=== PATIENT | female | born 1995 | race African-American/Black ===

== ENCOUNTER → 2023-07-19 10:51 | Outpatient (CLI) | payer MEDICARE, MEDICAID, SELFPAY ==
--- NOTE | ~2023-07-19 | XR_ITS ---
EXAMINATION: XR chest 2V 07/19/2023 11:28 INDICATION: Chronic cough PROCEDURE: 2 view chest COMPARISON: No prior studies for comparison. FINDINGS: The lungs are clear. The cardiomediastinal silhouette is within normal limits. There are no pleural effusions. There is no pneumothorax suspected. IMPRESSION: 1: NO ACUTE CARDIOPULMONARY DISEASE. Reviewed, dictated and finalized at location B.
== END ==
PROVIDERS: PCP Internal Medicine; Visit Provider Internal Medicine
DX: R10.9 Unspecified abdominal pain (principal); R05.3 Chronic cough
CPT/HCPCS: 71046

== ENCOUNTER → 2023-07-22 10:26 | Outpatient (CLI) | payer MEDICARE, MEDICAID, SELFPAY ==
--- NOTE | ~2023-07-22 | US_ITS ---
US right upper quadrant INDICATION: Right upper quadrant pain PROCEDURE: Realtime right upper abdominal ultrasound. COMPARISON: No prior studies for comparison. FINDINGS: The pancreas is normal without focal mass or pancreatic ductal dilation. Liver echotexture is diffusely increased, consistent with fatty infiltration. There are gallbladder polyps, largest measuring 8 mm. No gallstones, gallbladder wall thickening or p ericholecystic fluid. The gallbladder is normal without stones, gallbladder wall thickening or pericholecystic fluid. Comm on bile duct measures 4.4 mm. No sonographic Farnsworth's sign. IMPRESSION: 1: Gallbladder polyps, largest measuring 8 mm. 2: Hepatic steatosis. Reviewed, dictated and finalized at location A.
== END ==
PROVIDERS: PCP Internal Medicine; Visit Provider Internal Medicine
DX: R10.9 Unspecified abdominal pain (principal); R05.3 Chronic cough; K82.4 Cholesterolosis of gallbladder
CPT/HCPCS: 76705

== ENCOUNTER 2024-08-28 13:04 | Outpatient (CLI) | payer MEDICARE, MEDICAID, SELFPAY ==
--- NOTE | ~2024-08-28 | US_ITS ---
US breast RT limited 08/28/2024 13:39 Indication: Skin abscess Procedure: High-resolution Limited ultrasound of the right breast Comparison: No prior studies for comparison. Findings: In the subcutaneous tissues in the area of palpable concern there is an irregular shaped co mplex fluid collection measuring 2.1 x 2.2 x 0.6 cm, consistent with abscess. There is marginal vascu larity. There is overlying skin thickening. Impression: 1: Complex subcutaneous fluid collection measuring up to 2.2 cm in the right breast at 2-3:00, 12 cm from the nipple, consistent with abscess. BI-RADS CATEGORY 3-PROBABLY BENIGN FINDING RECOMMENDATION: 3 month follow-up ultrasound recommended following appropriate therapy. Reviewed, dictated and finalized at location B. TIC YARN TWISTER HELPER Impression: 1: Complex subcutaneous fluid collection measuring up to 2.2 cm in the right br east at 2-3:00, 12 cm from the nipple, consistent with abscess. BI-RADS CATEGORY 3-PROBABLY BENIGN FINDING RECOMMENDATION: 3 month follow-up ultrasound recommended following appropriate therapy.
== END 2024-08-28 13:05 | disposition home or self-care (01) ==
LOC: ANHIMG 13:06
PROVIDERS: PCP Internal Medicine; Visit Provider Nurse Practitioner
DX: N61.1 Abscess of the breast and nipple (principal); R92.8 Other abnormal and inconclusive findings on diagnostic imaging of breast
CPT/HCPCS: 76642

== ENCOUNTER 2025-01-04 00:36 | Day surgery (SDC) | payer MEDICARE, MEDICAID, SELFPAY ==
[2024-12-25 10:30] VITALS: BMI 39.4
--- NOTE | 2024-12-25 10:31 | PC.NURSE ---
Report to the Outpatient Waiting Room, entrance under the green pavilion located off [facility], at time _0600_ on date _[id number]_. Planned Procedure Time: _0730_.? Time changes happen often and if your time is changed the preop area will call you the afternoon before. - You and your visitor will be asked to self-screen and do not enter if you have any COVID symptoms. Please call surgeon if you need to reschedule. - A mask is optional within the hospital at this time. Patients may have clear liquids (water, carbonated beverages, clear teas, apple juice) until 3 hours prior to surgery with a maximum of 20 ounces. - No food from midnight until time of surgery and no smoking, or chewing tobacco (or any form of nicotine). No chewing gum, candy or mints. Take only the following medications with a SIP of water on the morning of surgery: ___Antibiotic if still taking.____ DO NOT STOP ANY OF YOUR OTHER PRESCRIPTION MEDICATIONS PRIOR TO SURGERY EXCEPT THE FOLLOWING Hold all vitamins and supplements for 3 days per anesthesiologist. Medications to discontinue per physician Date to take last ofpr___[phone]____ Please no make-up, nail yoruba, hairspray, perfume, deodorant, or body powder the day of surgery.? No jewelry (including any body piercings) or valuables the day of surgery, leave them at home.? Please take a shower or bath the night before, or the morning of, surgery with an antibacterial soap.? Wear comfortable, loose fitting clothing.? - Jewelry must be removed prior to entering the operating room.? Rings and piercings that are not removed may be cut off. - The hospital will not accept responsibility for valuables.? - Please leave all valuables, including medications, at home the day of surgery. If you are going home after surgery, a licensed lokie driver must drive you home.? - NO public transportation without another adult if you receive anesthesia. - We recommend that an adult stay with you for 24 hours following discharge. - We also recommend that you do not drive, make important decision, drink alcoholic beverages, or take any drugs that were not prescribed by your health care provider for at least 24 hours after your discharge time. Follow any additional instructions given to you from your surgeon. Telephone instructions given to __Debra/mother___and asked if any additional questions and then verbalized understanding. Patient advised to call surgeon office or pre surgery nurse liaison [phone] if any additional questions.
[2025-01-04] VITALS (8 sets, daily range): BP systolic 100–123; BP diastolic 64–84; PULSE 69–86; RESP 14–18; TEMP 36.2–36.3; O2SAT 97–100; BMI 39.5
--- OUTSIDE RECORDS SUMMARY | 2025-01-04 00:41 | XMS_ITS | CONTINUITY OF CARE DOCUMENT ---
Author Name naun magallon Address Unknown Organization [facility] Address [address] [place] [address] Phone [phone] Care Team Providers Care Photostat Operator Helper Name Role Phone Lisa Davila MD Unavailable Sudeep Hitchcock MD Unavailable Sudeep Hitchcock MD Unavailable [phone] PROBLEMS Condition Status Date Provider Notes Cardiology examination active Lisa mullins MD Down syndrome active Lisa Davila MD Exposure to COVID-19 coronavirus active Grover Davila MD Edema active Lisa Davila MD Respiratory failure active Lisa Davila MD Hypotension active Lisa Davila MD Sinus tachycardia active Lisa Robb D Edema - generalized active Lisa Davila MD ENCOUNTERS Date Type Provider Location Encounter Diag nosis - In-person encounter Office Visit Lisa Davila MD [facility] - In-person encounter Office Visit Lisa Davila MD [facility] - In-person encounter Office Visit Lisa Davila MD [facility] Cardiology examinationDown syndromeExposure to COVID-19 coronavirusEdemaRespiratory failureHypotensionSinus tachycardiaEdema - generalized VITAL SIGNS Date Observation Value Provider Body Mass Index (Ratio) 41.40 kg/m2 Selvin Davila MD blood pressure, diastolic -1 mm[Hg] Jaycee peteLogreed blood pressure, systolic 90 mm[Hg] Daksha Stewartogic blood pressure, diastolic 75 mm[Hg] An karthik Moe blood pressure, systolic 90 mm[Hg] Any martita Moe pulse rate 64 /min Ellen Moe oxygen saturation, oximetry 99 % Ellen Moe weight E&M 205 [lb_av] Ellen Moe blood pressure, cuff size large An karthik Moe height E&M 59 [in_i] Ellen Moe Body Mass Index (Ratio) 35.34 kg/m2 Selvin Davila MD blood pressure, diastolic 68 mm[Hg] Jaycee peteLogreed blood pressure, systolic 98 mm[Hg] Daksha blood pressure, cuff size regular Pa ris [place] blood pressure, diastolic 68 mm[Hg] Pa ris Trev blood pressure, systolic 98 mm[Hg] Par is [place] oxygen saturation, oximetry 98 % [facility] respiratory rate E&M 16 /min [facility] darcy pulse rate 87 /min Kaylah Trev weight E&M 175 [lb_av] [facility] height E&M 59 [in_i] [facility] Body Mass Index (Ratio) 34.13 kg/m2 Ramirez Valdivia blood pressure, diastolic 73 mm[Hg] Jaycee nkLogic blood pressure, systolic 105 mm[Hg] Daksha kLogic blood pressure, diastolic 73 mm[Hg] Sa ra [place] blood pressure, systolic 105 mm[Hg] [place] oxygen saturation, oximetry 98 % Gaby Morrow respiratory rate E&M 19 /min Gaby Si ms pulse rate 85 /min Gaby Morrow blood pressure, cuff size regular Sa ra [place] weight E&M 169 [lb_av] Gaby Morrow height E&M 59 [in_i] Gaby Vivars ALLERGIES No Known Drug Allergies HISTORY OF MEDICATION USE No Known Medication SOCIAL HISTORY Date Observation Value Provider Exercise counseling yes Maryse Cabello NP smoking status Former smoker Ellen toth social history reviewed E&M revi ewed - no changes required Lisa Davila MD social history E&M S moking History: Zan ortiz is a former smoker. Lisa Davila MD smoking status Former smoker Kaylah Karimi number of grandchildren Lisa Davila MD social history reviewed E&M revi ewed - no changes required Lisa Davila MD INSURANCE PROVIDERS Payer name Policy type / Coverage type [place] red [employer] party ID [facility] [facility] FAMILY [facility] Medicaid 2 [id number] [place] MEDICARE Medicare [id number] ADVANCE DIRECTIVES Name Date DISCUSSED - NO DECISION MADE TREATMENT PLAN Date Name Performer [id number],C,E KG today SR 67. ECHO today EF 60%, mild MR, trace TR. will check 48hr monitor Sinus tach noted by PCP most likely related to deconditioning H R today 80. Telemonitor was completed but file was not yet in rhythmstar. Check again. Maryse Cabello STONE DRESSER [id number],C,B P today 90/75. concern re: BP being too low. BP today 90/75. pt denie any CP, SOB, dizziness. at times at home, BP as low as 80's. Given her Down's Syndrome, mother states when ever pt is asked how she feels, she 'always says fine.' m other has encouraged increased fluid intake and increased sodium intake. orthostatics checked- negative. sitting 84/69 hr 63 standing 99/78 HR 64. encouraged compression stockings, and increase PO intake with electrolytes (Gatorade/pedialyte). pt states really has not had anything to eat or drink yet today. encouraged small meal and to carry bottle of water/gatorade when out to keep hydrated. Maryse Cabello STONE DRESSER [id number],C, Maryse naqvi STONE DRESSER [id number],C, U nvaccinated covid pneumonia extensive hospitalization [facility] and currently is deconditioned. s/p PT and rehab Maryse Cabello STONE DRESSER [id number],C,i mproved. p robably related to deconditioning should improve with increased activity. echo 10/2021 normal Maryse Cabello STONE DRESSER [id number],C, h ad tracheostomy for covid pna 9 8% RA Maryse Cabello STONE DRESSER [id number],C,i mproved. issues with soft BP, encouraged compression stockings Maryse Cabello STONE DRESSER [id number],C,C ONCLUSIONS: 1 . Technically difficult study, secondary to poor acoustic windows and patients difficulty in following breathing commands. T here is poor endocardial visualization. Interpretation is based on available limited views. Normal left ventricular systolic f unction. Normal left ventricular size. Normal left ventricular wall thickness. Normal left ventricular diastolic function. E/E': 1 0.3 Left ventricular ejection fraction is measured at 60 %. 2 . Mild enlargement of right ventricle. Normal right ventricular systolic function. 3 . Normal appearing tricuspid valve leaflets. No evidence of tricuspid regurgitation. IVC is dilated with partial respiratory r esponse, consistent with moderately elevated right atrial pressures. Unable to adequately assess the RVSP. 4 . Pulmonic valve leaflets appear structurally normal. Normal pulmonic valve velocities by Doppler. There is mild pulmonic r egurgitation. E lectronically Signed By: Josep Davila MD, [facility] 2 14:50:05 BLOCK SETTER GYPSUM C C: Lisa Davila MD, [facility] Lisa Davila MD [id number],C, S inus tach noted by PCP most likely related to deconditioning H R today 80. Telemonitor was completed but file was not yet in rhythmstar. Check again. Lisa Davila MD [id number],C, U nvaccinated covid pneumonia extensive hospitalization requiring trach and peg was at [facility] and currently is deconditioned. Will be getting PT and rehab Lisa Davila MD [id number],S, Lisa estevez MD [id number],S,bp is stable Lisa Davila MD [id number],C,p robably related to deconditioning should improve with increased activity will check echo for LV function Lisa Davila MD [id number],S,had tracheost mounika for covid pna Lisa Davila MD [id number],C,U nvaccinated covid pneumonia extensive hospitalization requiring trach and peg was at [facility] and currently is deconditioned. Will be getting PT and rehab Lisa Davila MD [id number],S,S inus tach noted by PCP will get telemonitor most likely related to deconditioning Lisa Davila MD Cardiology:EKG today SR 67. ECHO today EF 60%, mild MR, trace TR. will check 48hr monitor Sinus tach noted by PCP most likely related to deconditioning H R today 80. Telemonitor was completed but file was not yet in [facility]. Check again. Maryse Cabello NP Cardiology:BP today 90/75. concern re: BP being too low. BP today 90/75. pt denie any CP, SOB, dizziness. at times at home, BP as low as 80's. Given her Down's Syndrome, mother states when ever pt is asked how she feels, she 'always says fine.' m other has encouraged increased fluid intake and increased sodium intake. orthostatics checked- negative. sitting 84/69 hr 63 standing 99/78 HR 64. encouraged compression stockings, and increase PO intake with electrolytes (Gatorade/pedialyte). pt states really has not had anything to eat or drink yet today. encouraged small meal and to carry bottle of water/gatorade when out to keep hydrated. Maryse Cabello NP Cardiology Maryse Cabello NP Cardiology: U nvaccinated covid pneumonia extensive hospitalization requiring trach and peg was at [facility] and currently is deconditioned. s/p PT and rehab Maryse Cabello NP Cardiology:improved. p robably related to deconditioning should improve with increased activity. echo 10/2021 normal Maryse Cabello NP Cardiology: h ad tracheostomy for covid pna 9 8% RA Maryse Cabello NP Cardiology:improved. issues with soft BP, encouraged compression stockings Maryse Cabello NP Cardiology:CONCLUSIO NS: 1 . Technically difficult study, secondary to poor acoustic windows and patients difficulty in following breathing commands. T here is poor endocardial visualization. Interpretation is based on available limited views. Normal left ventricular systolic f unction. Normal left ventricular size. Normal left ventricular wall thickness. Normal left ventricular diastolic function. E/E': 1 0.3 Left ventricular ejection fraction is measured at 60 %. 2 . Mild enlargement of right ventricle. Normal right ventricular systolic function. 3 . Normal appearing tricuspid valve leaflets. No evidence of tricuspid regurgitation. IVC is dilated with partial respiratory r esponse, consistent with moderately elevated right atrial pressures. Unable to adequately assess the RVSP. 4 . Pulmonic valve leaflets appear structurally normal. Normal pulmonic valve velocities by Doppler. There is mild pulmonic r egurgitation. E lectronically Signed By: Josep Davila MD, FACC 14:50:05 BLOCK SETTER GYPSUM C C: Lisa Davila MD, FACC Lisa Davila MD Cardiology: S inus tach noted by PCP most likely related to deconditioning H R today 80. Telemonitor was completed but file was not yet in rhythm[facility]. Check again. Lisa Davila MD Cardiology: U nvaccinated covid pneumonia extensive hospitalization requiring trach and peg was at [facility] and currently is deconditioned. Will be getting PT and rehab Lisa Davila MD Cardiology Lisa Davila MD Cardiology:bp is stable Lisa Davila MD Cardiology:probably related to deconditioning should improve with increased activity will check echo for LV function Lisa Davila MD Cardiology:had tracheostomy for covid pna Lisa Davila MD Cardiology:Unvaccina chaparrita covid pneumonia extensive hospitalization requiring trach and peg was at [facility] and currently is deconditioned. Will be getting PT and rehab Lisa Davila MD Cardiology:Sinus tac h noted by PCP will get telemonitor most likely related to deconditioning Lisa Davila MD Date Name Holter Monitor 48 hr Complete Echo Holter Monitor 48 hr Complete Echo HISTORY OF PROCEDURES Procedure Date Procedure Name Provider Procedure Notes S tatus Schedule Followup Lisa Davila MD [address] Kenny Davila completed EKG Lisa Davila MD compl eted EKG Lisa Davila MD compl eted EKG Lisa Davila MD compl eted
--- OUTSIDE RECORDS SUMMARY | 2025-01-04 00:41 | XMS_ITS | Continuity of Care Document ---
Author Organization [facility] Address [address] [place] [address] Phone Care Team Providers Care Compliance Consultant Name Role Phone Triplett OD, Randy Unavailable Unavailable Procedures Procedure Date Eye Exam & Treatment Refraction Advance Directives Directive Yes / No Effective Date File Name No Information Encounters Encounter Description Practice Location Reason(s) For Visit Diagnoses Date Provider Providers Copied on Encounter [facility], [address], [place], [place], [id number], [place] tel:[phone] [address] [facility] No Information [phone] Triplett OD Randy. [address], [place], [address], [place]. tel:[phone] Family History Family Member Type Diagnosis Age At Onset No Information Payers Payer name Insurance type Covered libertarian ID Authoriza tion(s) Medicaid [employer] [id number] Social History Type Description Quantity Date Captured Comments Sex Female Smoking Status No Information Chief Complaint And Reason For Visit No Information Reason For Referral Reason For Referral No Information History Of Present Illness Encounter Date Complaint History Of Prese nt Illness No Information Functional Status Date Functional Assessmen t No Information Instructions Date Instruction Additional Infor mation No Information Assessments Type Assessment Date No Information Patient Care Teams Name Effective Dates (start - stop) Status Members No Information
--- OUTSIDE RECORDS SUMMARY | 2025-01-04 00:41 | XMS_ITS | Data Portability ---
Author Organization [facility] [place] [facility] Address [address] [place] [address] Care Team Providers Care Radio Engineer Name Role Phone CASSIA GARCIA Primary Care Provider Assessment No assessment recorded. Plan of Treatment Reminders Order Date Submit Date Provider Last Modified By Organization Details Last Modified Time Details Appointments None recorded. Lab CMP, serum or plasma 2022 023 [facility], [address] [place] [address], [address], [place], [address], 3 06:18:24 CBC w/ auto diff 2022 023 [facility], [address] [place] [address], [address], [place], [address], 3 06:18:24 amylase + lipase, serum 2022 023 [facility], [address] [place] [address], [address], [place], [address], 3 17:09:28 celiac disease comprehensi ve panel, serum 2022 023 [facility], [address] [place] [address], [address], [place], [address], 3 17:09:[address] referral - Please call patient for appointment , thanks! 2022 023 hien Mcgowan MD, [address] [place], [address], 4 12:27:52 Procedures None recorded. Surgeries None recorded. Imaging US, gallbladder 2022 023 [facility], [address] [facility], [place], [address], 18:56:24 XR, chest, 2 view 2022 023 [facility], [address] [facility], [place], [address], 12:40:33 Medication Orders albuterol sulfate HFA 90 mcg/actuati on aerosol inhaler 2022 023 [facility], [address] [place] [address], [address], 14:13:40 Patient TargetsNo targets recorded. Patient Instructions Encounter Date Encounter Id Patient Instructions Last Modified By Organization Details Last Modified Time 05/15/2017 [id number] When You Want to Lose Weight: Care Instructions Not available 05/16/2017 08:09:34 hearing screening* [email or web address] Not available 05/15/2017 19:21:07 visual acuity* [facility] Not avail able 05/15/2017 19:21:07 06/11/2023 [id number] tetanus and diphtheria booster: care instructions sieh Not available 06/11/2023 15:01:49 chronic cough: care instructions sieh Not available 06/11/2023 14:38:18 08/29/2023 [id number] A healthy lifestyle: care instructions jhsieh Not available 08/29/2023 15:37:50 high cholesterol: care instructions sieh Not available 08/29/2023 15:37:50 04/13/2024 [id number] A healthy lifestyle: care instructions [email or web address] Not available 04/13/2024 14:46:37 Reason for Referral [facility] Nurse Referral for C hronic cough Please call patient for appointment, thanks! Referring Physician: Vinnie Lu, Internal Medicine, Encounter Date: 06/11/2023 Results Created Date Observation Date Name Description Value Unit Range Abnormal Flag Note LastModifiedBy Organization Detail LastModifiedTime 05/15/20 17 05/15/2017 visua l acuit y* R Eye Uncorrected 20/200 Not Available In-O ffice Order Internal Use Only DO Not Attach Compendium DO Not Attach Compendium, Do Not Delete/merge, [id number] 05/15/2017 17:23:34 05/15/20 17 05/15/2017 visua l acuit y* L Eye Uncorrected 20/100 -1 Not Available In-Office Order Internal Use Only DO Not Attach Compendium DO Not Attach Compendium, Do Not Delete/merge, [id number] 05/15/2017 17:23:34 05/15/20 17 05/15/2017 heari ng scree lore* Unknown Analyte normal Not Available In-Off ice Order Internal Use Only DO Not Attach Compendium DO Not Attach Compendium, Do Not Delete/merge, [id number] 05/15/2017 17:22:19 05/15/20 17 05/15/2017 heari ng scree lore* Unknown Analyte normal Not Available In-Off ice Order Internal Use Only DO Not Attach Compendium DO Not Attach Compendium, Do Not Delete/merge, [id number] 05/15/2017 17:22:19 05/15/20 17 05/15/2017 heari ng scree lore* Unknown Analyte normal Not Available In-Off ice Order Internal Use Only DO Not Attach Compendium DO Not Attach Compendium, Do Not Delete/merge, [id number] 05/15/2017 17:22:19 05/15/20 17 05/15/2017 heari ng scree lore* Unknown Analyte normal Not Available In-Off ice Order Internal Use Only DO Not Attach Compendium DO Not Attach Compendium, Do Not Delete/merge, [id number] 05/15/2017 17:22:19 05/15/20 17 05/15/2017 heari ng scree lore* Unknown Analyte normal Not Available In-Off ice Order Internal Use Only DO Not Attach Compendium DO Not Attach Compendium, Do Not Delete/merge, [id number] 05/15/2017 17:22:19 05/15/20 17 05/15/2017 yohan torrez* Unknown Analyte normal Not Available In-Off ice Order Internal Use Only DO Not Attach Compendium DO Not Attach Compendium, Do Not Delete/merge, [id number] 05/15/2017 17:22:19 06/11/20 23 06/11/2023 COMP. METAB OLIC PANEL (14) glucose 89 mg/dL 70-99 Not Available [facility] [address] [place], [address], 06/12/2023 06:18:23 06/11/20 23 06/11/2023 COMP. METAB OLIC PANEL (14) BUN 9 mg/dL 6-20 Not Available [facility] [address] [place], [address], 06/12/2023 06:18:23 06/11/20 23 06/11/2023 COMP. METAB OLIC PANEL (14) creatinine 0.86 mg/dL 0.76-1 .27 Not Available [facility] [address] [place], [address], 06/12/2023 06:18:23 06/11/20 23 06/11/2023 COMP. METAB OLIC PANEL (14) eGFR 96 >=60 Units for eGFR value s are mL/mi n/1.7 3 The eGFR Calcu latio n has not been valid ated for patie nts under the age of 18. If test resul ts are displ ayed for a patie nt under the age of 18, disre maryuri that value . Not Available [facility] [address] [place], [address], 06/12/2023 06:18:23 06/11/20 23 06/11/2023 COMP. METAB OLIC PANEL (14) BUN/creatini ne ratio 10 9-23 Not Available [facility] [address] [place], [address], 06/12/2023 06:18:23 06/11/20 23 06/11/2023 COMP. METAB OLIC PANEL (14) sodium 136 mmol/ L 134-14 4 Not Available [facility] [address] [place] [address], [address], 06/12/2023 06:18:23 06/11/20 23 06/11/2023 COMP. METAB OLIC PANEL (14) potassium 4.9 mmol/ L 3.5-5. 2 Not Available [facility] [address] [place] [address], [address], 06/12/2023 06:18:23 06/11/20 23 06/11/2023 COMP. METAB OLIC PANEL (14) chloride 102 mmol/ L 96-106 Not Available [facility] [address] [place] [address], [address], 06/12/2023 06:18:23 06/11/20 23 06/11/2023 COMP. METAB OLIC PANEL (14) carbon dioxide, total 26 mmol/ L 20-29 Not Available [facility] [address] [place] [address], [address], 06/12/2023 06:18:23 06/11/20 23 06/11/2023 COMP. METAB OLIC PANEL (14) calcium 9.4 mg/dL 8.7-10 .2 Not Available [facility] [address] [place] [address], [address], 06/12/2023 06:18:23 06/11/20 23 06/11/2023 COMP. METAB OLIC PANEL (14) protein, total 8.1 g/dL 6.0-8. 5 Not Available [facility] [address] [place] [address], [address], 06/12/2023 06:18:23 06/11/20 23 06/11/2023 COMP. METAB OLIC PANEL (14) albumin 4.3 g/dL 4.0-5. 0 Not Available [facility] [address] [place], [address], 06/12/2023 06:18:23 06/11/20 23 06/11/2023 COMP. METAB OLIC PANEL (14) globulin, total 3.8 g/dL 1.5-4. 5 Not Available [facility] [address] [place], [address], 06/12/2023 06:18:23 06/11/20 23 06/11/2023 COMP. METAB OLIC PANEL (14) A/G ratio 1.0 1.2-2. 2 below low normal Not Available [facility] [address] [place], [address], 06/12/2023 06:18:23 06/11/20 23 06/11/2023 COMP. METAB OLIC PANEL (14) bilirubin, total 0.3 mg/dL 0.0-1. 2 Not Available [facility] [address] [place], [address], 06/12/2023 06:18:23 06/11/20 23 06/11/2023 COMP. METAB OLIC PANEL (14) alkaline phosphatase 97 IU/L 44-121 Not Available [facility] [address] [place], [address], 06/12/2023 06:18:23 06/11/20 23 06/11/2023 COMP. METAB OLIC PANEL (14) AST (SGOT) 13 IU/L 0-40 Not Available [facility] [address] [place], [address], 06/12/2023 06:18:23 06/11/20 23 06/11/2023 COMP. METAB OLIC PANEL (14) ALT (SGPT) 10 IU/L 0-32 Not Available [facility] [address] [place] [address], [address], 06/12/2023 06:18:23 06/11/2006/11/2023 CBC WITH DIFFE RENTI AL/PL ATELE T WBC 6.3 x10e3 /uL 3.4-10 .8 Not Available [facility] [address] [place], [address], 06/12/2023 06:18:24 06/11/20 23 06/11/2023 CBC WITH DIFFE RENTI AL/PL ATELE T RBC 4.47 x10e6 /uL 3.77-5 .28 Not Available [facility] [address] [place], [address], 06/12/2023 06:18:24 06/11/2006/11/2023 CBC WITH DIFFE RENTI AL/PL ATELE T hemoglobin 13.6 g/dL 11.1-1 5.9 Not Available [facility] [address] [place], [address], 06/12/2023 06:18:24 06/11/20 23 06/11/2023 CBC WITH DIFFE RENTI AL/PL ATELE T hematocrit 43.2 % 34.0-4 6.6 Not Available [facility] [address] [place], [address], 06/12/2023 06:18:24 06/11/2006/11/2023 CBC WITH DIFFE RENTI AL/PL ATELE T MCV 97 fL 79-97 Not Available [facility] [address] [place], [address], 06/12/2023 06:18:24 06/11/2006/11/2023 CBC WITH DIFFE RENTI AL/PL ATELE T MCH 30.4 pg 26.6-3 3.0 Not Available [facility] [address] [place], [address], 06/12/2023 06:18:24 06/11/2006/11/2023 CBC WITH DIFFE RENTI AL/PL ATELE T MCHC 31.5 g/dL 31.5-3 5.7 Not Available [facility] [address] [place], [address], 06/12/2023 06:18:24 06/11/20 23 06/11/2023 CBC WITH DIFFE RENTI AL/PL ATELE T RDW 14.8 % 11.5-1 4.5 above high normal Not Available [facility] [address] [place], [address], 06/12/2023 06:18:24 06/11/20 23 06/11/2023 CBC WITH DIFFE RENTI AL/PL ATELE T platelets 413 x10e3 /uL 150-45 0 Not Available [facility] [address] [place], [address], 06/12/2023 06:18:24 06/11/2006/11/2023 CBC WITH DIFFE RENTI AL/PL ATELE T neutrophils 46 % notest b. Not Available [facility] [address] [place], [address], 06/12/2023 06:18:24 06/11/2006/11/2023 CBC WITH DIFFE RENTI AL/PL ATELE T lymphs 43 % notest b. Not Available [facility] [address] [place], [address], 06/12/2023 06:18:24 06/11/2006/11/2023 CBC WITH DIFFE RENTI AL/PL ATELE T monocytes 8 % notest b. Not Available [facility] [address] [place], [address], 06/12/2023 06:18:24 06/11/2006/11/2023 CBC WITH DIFFE RENTI AL/PL ATELE T eos 0 % notest b. Not Available [facility] [address] [place], [address], 06/12/2023 06:18:24 06/11/20 23 06/11/2023 CBC WITH DIFFE RENTI AL/PL ATELE T basos 1 % notest b. Not Available [facility] [address] [place], [address], 06/12/2023 06:18:24 06/11/20 23 06/11/2023 CBC WITH DIFFE RENTI AL/PL ATELE T neutrophils (absolute) 2.9 x10e3 /uL 1.4-7. 0 Not Available [facility] [address] [place], [address], 06/12/2023 06:18:24 06/11/20 23 06/11/2023 CBC WITH DIFFE RENTI AL/PL ATELE T lymphs (absolute) 2.7 x10e3 /uL 0.7-3. 1 Not Available [facility] [address] [place], [address], 06/12/2023 06:18:24 06/11/20 23 06/11/2023 CBC WITH DIFFE RENTI AL/PL ATELE T monocytes(ab solute) 0.5 x10e3 /uL 0.1-0. 9 Not Available [facility] [address] [place], [address], 06/12/2023 06:18:24 06/11/20 23 06/11/2023 CBC WITH DIFFE RENTI AL/PL ATELE T eos (absolute) 0.0 x10e3 /uL 0.0-0. 4 Not Available [facility] [address] [place], [address], 06/12/2023 06:18:24 06/11/20 23 06/11/2023 CBC WITH DIFFE RENTI AL/PL ATELE T baso (absolute) 0.1 x10e3 /uL 0.0-0. 2 Not Available [facility] [address] [place], [address], 06/12/2023 06:18:24 06/11/20 23 06/11/2023 CBC WITH DIFFE RENTI AL/PL ATELE T immature granulocytes 1.6 % notest b. Not Available [facility] [address] [place], [address], 06/12/2023 06:18:24 06/11/20 23 06/11/2023 CBC WITH DIFFE RENTI AL/PL ATELE T immature grans (abs) 0.1 x10e3 /uL 0.0-0. 1 Not Available [facility] [address] [facility], [place], [address], 06/12/2023 06:18:24 06/11/20 23 06/11/2023 CBC WITH DIFFE RENTI AL/PL ATELE T NRBC 0 % 0-0 Not Available [facility] [address] [place], [address], 06/12/2023 06:18:24 06/11/20 23 06/12/2023 FRANNIE C DISEA SE PANEL endomysial antibody IgA Negati ve negati ve Not Available [facility] ([facility]) [address] [place], [address], 06/12/2023 17:09:27 06/11/20 23 06/12/2023 FRANNIE C DISEA SE PANEL T-transgluta minase (ttg) IgA <2 U/mL 0-3 Negat jun 0 - 3 Weak Posit jun 4 - 10 Posit jun >10 Tissu e Trans gluta ioana e (tTG) has been ident ified as the endom ysial antig en. Studi es have demon str- ated that endom ysial IgA antib odies have over 99% speci ficit y for glute n sensi tive enter opath y. Not Available [facility] ([facility]) [address] [place], [address], 06/12/2023 17:09:27 06/11/20 23 06/12/2023 FRANNIE C DISEA SE PANEL immunoglobul in A, qn, serum 398 mg/dL 87-352 above high normal Not Available [facility] ([facility]) [address] [facility], [place], [address], 06/12/2023 17:09:27 06/11/20 23 06/12/2023 BATSHEVA+L IPASE amylase 31 U/L 31-110 Not Available [facility] ([facility]) [address] [facility], [place], [address], 06/12/2023 17:09:28 06/11/20 23 06/12/2023 BATSHEVA+L IPASE lipase 21 U/L 14-72 Not Available [facility] ([facility]) [address] [facility], [place], [address], 06/12/2023 17:09:28 07/19/20 23 07/19/2023 XR, chest , 2 view No observ ation record ed. [facility] [address], [place], [address], 07/19/2023 17:17:34 07/19/20 23 07/19/2023 XR, chest , 2 view No observ ation record ed. [facility] [address], [place], [address], 07/19/2023 17:17:35 07/22/20 23 07/22/2023 US, ana fry r No observ ation record ed. [facility] [address], [place], [address], 08/09/2023 15:09:51 07/23/2007/22/2023 US, ana ladde r No observ ation record ed. [facility] [address], [place], [address], 08/09/2023 15:09:52 08/28/20 24 08/28/2024 US, michael t, limit ed No observ ation record ed. [address], [place], [address], 10/08/2024 08:16:07 Result Notes None recorded. Problems Name Problem SNOMED Code Status Onset Date Resolution Date Notes Provider Name and Address Organization Details Recorded Time Lesion of skin of breast 641071787962634 Active 2024 Cassia Garcia MD Attn: Accountmorgan g,[address], [place], [address], 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 6 18:13:59 Morbid obesity 025773071 Active FRANCISCO Matos-JAVIER Attn: Accountmorgan g,[address], [place], [address], [facility] - [facility] 6 18:13:59 Problem Notes None recorded. Procedures Surgical History Date Name Laterality Status Provider Name and Address Organization Details Recorded Time Tracheal suction tube completed Batsheva Conner [place] - [facility] 06/11/2023 14:18:45 Imaging Results Imaging Date Name Status LastModified by Organiz ation Details LastModified Time 07/19/2023 [facility] [address], [place], [address], 07/19/2023 17:17:34 07/19/2023 XR, chest, 2 view completed [email or web address] [address], [place], [address], 07/19/2023 17:17:35 07/22/2023 US, gallbladder completed [email or web address] [address], [place], [address], 08/09/2023 15:09:51 07/22/2023 US, gallbladder completed [email or web address] [address], [place], [address], 08/09/2023 15:09:52 08/28/2024 US, breast, limited completed [address], [place], [address], 10/08/2024 08:16:07 Procedure Notes None recorded. Medical Equipment None Reported. Allergies No known drug allergies Medications Name Sig Start Date Stop Date Status Note LastModified by Organization Details LastModified Time benzonatate 100 mg capsule TAKE ONE CAPSULE BY MOUTH THREE TIMES DAILY needed 06/11 completed Not Available Not Available Not Available mupirocin 2 % topical ointment APPLY A SMALL AMOUNT TO THE AFFECTED AREA BY TOPICAL ROUTE 2 TIMES PER DAY 2024 active Not Available Not Available Not Avai lable Ventolin HFA 90 mcg/actuati on aerosol inhaler INHALE 2 PUFFS BY MOUTH EVERY 4 HOURS NEEDED 04/13 completed Not Available Not Available Not Available nitrofurant oin monohydrate /macrocryst als 100 mg capsule TAKE ONE CAPSULE BY MOUTH EVERY TWELVE HOURS FOR FIVE DAYS 06/11 completed Not Available Not Available Not Available Clindamycin Pediatric 75 mg/5 mL oral solution take 20 millilite rs BY MOUTH TWICE DAILY with meals FOR 5 DAYS 04/13 completed Not Available Not Available Not Available Vitals Date Recorded Body height Heart rate Oxygen saturation Oxygen saturation in Arterial blood by Pulse oximetry Systolic blood pressure Diastolic blood pressure Provider Name and Address Organization Details Last Updated DateTime 3 147.32 cm 74 /min 97 % 97 % 102 mm[Hg] 66 mm[Hg] Batsheva Conner [place] - [facility] 3 14:12:22 Date Recorded Body height Body mass index (BMI) Body weight Heart rate Oxygen saturation Oxygen saturation in Arterial blood by Pulse oximetry Systolic blood pressure Diastolic blood pressure Provider Name and Address Organization Details Last Updated DateTime 3 147.32 cm 41.2 kg/m2 64726.7 g 76 /min 99 % 99 % 110 mm[Hg] 68 mm[Hg] Batsheva Conner MA [facility] 3 14:47:35 Date Recorded Body height Body mass index (BMI) Body weight Oxygen saturation Oxygen saturation in Arterial blood by Pulse oximetry Heart rate Systolic blood pressure Diastolic blood pressure Provider Name and Address Organization Details Last Updated DateTime 4 147.32 cm 41.2 kg/m2 28535.7 g 99 % 99 % 67 /min 102 mm[Hg] 68 mm[Hg] Annamarie Gerardo MA [facility] 4 14:16:57 Date Recorded Body height Body mass index (BMI) Body weight Heart rate Oxygen saturation Oxygen saturation in Arterial blood by Pulse oximetry Systolic blood pressure Diastolic blood pressure Provider Name and Address Organization Details Last Updated DateTime 5 147.32 cm 41 kg/m2 66328.1 g 78 /min 98 % 98 % 95 mm[Hg] 66 mm[Hg] Martha Carlin MA [facility] 5 16:53:02 Date Recorded Body height Body mass index (BMI) Body weight Heart rate Oxygen saturation Oxygen saturation in Arterial blood by Pulse oximetry Respiratory rate Body temperature Systolic blood pressure Diastolic blood pressure Provider Name and Address Organization Details Last Updated DateTime 7 148.59 cm 38.5 kg/m2 46160.2 2 g 82 /min 98 % 98 % 18 /min 98.2 [degF] 100 mm[Hg] 62 mm[Hg] Judy Marmolejo MA [facility] 7 17:16:22 Social History Question Answer Notes LastModified by Organizat ion Details LastModified Time Tobacco Smoking Status Never Smoker Abbi pennington [facility] 07/12/2015 16:57:55 Do You Have An Advance Directive? No Information not available 06/11/2023 What Is Your Level Of Alcohol Consumption? None Information not available 05/15/2017 Animal Exposure? No Informat ion not available 05/15/2017 Are You Blind Or Do You Have Difficulty Seeing? No Information not available 06/11/2023 Are You Or Have You Been Involved With Bullying? No Information not available 05/15/2017 What Is Your Level Of Caffeine Consumption? None Information not available 05/15/2017 How Much Tobacco Do You Chew? None Information not available 05/15/2017 Are You Currently Employed? No Information not available 06/11/2023 Are You Deaf Or Do You Have Serious Difficulty Hearing? No Information not available 06/11/2023 What Type Of Diet Are You Following? REGULAR Information not available 06/11/2023 What Is The Highest Grade Or Level Of School You Have Completed Or The Highest Degree You Have Received? [id number] Information not available 06/11/2023 What Is The Fluoride Status Of Your Home? Fluoridated Information not available 05/15/2017 Are There Any Guns Present In Your Home? No Information not available 05/15/2017 Mosquito Repellent Used Routinely No Information not available 05/15/2017 What Was The Date Of Your Most Recent Tobacco Screening? 10/01/2024 [email or web address] Information not available 10/01/2024 Pool Exposure No Information not available 05/15/2017 What Is Your Relationship Status? Single Information not available 06/11/2023 Do You Use Your Seat Belt Or Car Seat Routinely? Yes Information not available 05/15/2017 Are You Sexually Active? No Information not available 05/15/2017 Do You Have Smoke And Carbon Monoxide Detectors In Your Home? Yes Information not available 05/15/2017 How Much Tobacco Do You Smoke? No [email or web address] Information not available 07/12/2015 Do You Feel Stressed (tense, Restless, Nervous, Or Anxious, Or Unable To Sleep At Night)? [id number] Information not available 06/11/2023 Do You Use Any Illicit Or Recreational Drugs? No Information not available 06/11/2023 Do You Use Sunscreen Routinely? No Information not available 05/15/2017 Has Tobacco Cessation Counseling Been Provided? No Information not available 06/11/2023 Year In School HS Grad Informatio n not available 05/15/2017 Do You Or Have You Ever Used Any Other Forms Of Tobacco Or Nicotine? No [email or web address] Information not available 04/13/2024 Sex: Female Functional Status Question Answer Note LastModified by Organization D etails LastModified Time Are you able to care for yourself? Yes Information not available 06/11/2023 What is your exercise level? Moderate Information not available 06/11/2023 Mental Status None recorded. Family History Relationship Description Onset Age of this Age Resolved Age Notes LastModified by Organization Details LastModified Time Maternal Grandmother Diabetes mellitus [email or web address] Not available 2015 15:33:14 Medical History Condition Response Blood Diseases N Depression N Developmental or Behavioral Disorders Y Premature N Anxiety Disorder N Muscle, Joint, or Bone Problems N Vision or Eye Problems N Head Injury/Concussion N Cancer N ADHD N Bladder or Kidney Problems N Headaches N Ear or Hearing Problems N Thyroid Problems N Skin Problems N Anemia N Constipation N Diabetes N Bedwetting N Seizures/Epilepsy N Heart Problems/Murmur N Asthma N Allergies N Chicken Pox N Autism Spectrum Disorder (ASD) N Gynecological History Statement/Question Response Flow Moderate Date of LMP 09/03/2024 On BCP's at Conception? N STIs/STDs N Duration of Flow (days) 4 Most Recent Mammogram Age at Menarche 16 Current Control Method None Age at First Child 2 If Post Menopausal, Age at Menopause Frequency of Cycle (Q days) 30 Sexually Active? N Menses Monthly Y Sexual Problems? N LMP Approximate Obstetrics History GPAL:G 0 P 0 0 0 0 Immunizations Vaccine Type Date Status Note Provider Nam e and Address Organization Details Recorded Time varicella 8 completed Abbi [place], [place] - [facility] 07/12/2015 17:12:04 varicella 9 navi [place] [facility] 07/12/2015 17:12:04 Hib, unspecified formulation 8 nav[place] [facility] 07/12/2015 17:12:04 MMR 9 nav[place] [facility] 07/12/2015 17:12:04 Pneumococcal conjugate PCV 13 1 navi [place] [facility] 07/12/2015 17:12:04 DTaP, unspecified formulation 8 completed Robbica [place]oe [place] [facility] 07/12/2015 17:12:04 Hep B, unspecified formulation 7 completed [place] [facility] 07/12/2015 17:12:04 MMR 4 completed [place] [facility] 07/12/2015 17:12:04 DTaP, unspecified formulation 8 completed [place] [facility] 07/12/2015 17:12:04 Hep B, unspecified formulation 8 completed [place] [facility] 07/12/2015 17:12:04 DTaP, unspecified formulation 8 completed [place] [facility] 07/12/2015 17:12:04 polio, unspecified formulation 4 completed [place] [facility] 07/12/2015 17:12:04 polio, unspecified formulation 0 completed [place] [facility] 07/12/2015 17:12:04 polio, unspecified formulation 8 completed [place] [facility] 07/12/2015 17:12:04 meningococcal ACWY, unspecified formulation 3 completed [place] [facility] 07/12/2015 17:12:04 polio, unspecified formulation 8 [place] [facility] 07/12/2015 17:12:04 DTaP, unspecified formulation 0 completed [place] [facility] 07/12/2015 17:12:04 Hib, unspecified formulation 8 completed [place] [facility] 07/12/2015 17:12:04 Hib, unspecified formulation 0 completed [place] [facility] 07/12/2015 17:12:04 Hep A, pediatric, unspecified formulation 6 completed [place] [facility] 07/12/2015 17:12:04 Hep A, pediatric, unspecified formulation 8 completed [place]bi [place] [facility] 07/12/2015 17:12:04 DTaP, unspecified formulation 4 completed [place] [facility] 07/12/2015 17:12:04 meningococcal ACWY, unspecified formulation 0 [place] [facility] 07/12/2015 17:12:04 Hib, unspecified formulation 8 completed [place] [facility] 07/12/2015 17:12:04 Hep B, unspecified formulation 8 completed [place] [facility] 07/12/2015 17:12:04 Tdap 0 [place] [facility] 07/12/2015 17:12:04 Past Encounters Encounter ID Performer Location Encounter Start Date Encounter Closed Date Diagnosis/Indication Diagnosis SNOMED-CT Code Diagnosis ICD10 Code Diagnosis Note [id number] [facility] [address] [place] [address] 07/12/2015 16:02:50 07/15/2015 03:47:30 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 [id number] [facility] [address] [place] [address] 12/28/2015 14:08:25 12/29/2015 09:54:45 Well child 003549090 Z00.129 Anticipato ry guidance appropriat e for age. Mom to schedule SENIOR STORAGE ENGINEER appt. with Grisel Bassett at [facility] - per mom's request. Mon to schedule dental appt. with Dr. Hunt - problems in past with dentist being able to evaluate. HPV's discussed - will wait until after SENIOR STORAGE ENGINEER exam. Partial tr isomy 21 in Down's syndrome 657207988 Q90.9 Will continue with Special Ed until age 23. Morbid obesity 794279601 E66.01 Nutrition/ exercise discussed. [id number] Callie Bassett [facility] (COSTUMER) [address] [place] [address] 01/11/2016 15:25:00 01/11/2016 17:12:42 Family planning education 507183039 Z30.02 [id number] Chelsy kahn, FRANCISCO-JAVIER [facility] (Peds) [address] [place] [address] 05/15/2017 16:27:50 05/23/2017 09:04:55 Adult health examination 659338579 Z00.00 Form completed for [facility] to get enrolled in work program. Will check with SENIOR STORAGE ENGINEER regarding when she will need SENIOR STORAGE ENGINEER exam. HPV's discussed, mom will consider. Handout given. No labs done today due to lab being closed. WNL 2016 Obesity 551005412 E66.9 Nutrition/ exercise discussed in detail. Needs MV daily due to limited fruits and vegetables . 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 Developmental delay 2482 94066 R62.50 Strabismus 29457124 H50. 9 Has glasses, encouraged to wear. [id number] MD Maki Vasquez (Adult Med) [address] [place] [address] 06/11/2023 14:00:36 06/14/2023 14:59:08 Chronic cough 00388218 R05.3 Had covid infection, then was int[facility]ated at [facility] , tracheosto my, then was at chronic respirator y care facility. since then has had chronic cough, no a smoker, on no med. Chronic no nspecific abdominal pain 679561237 R10.9 Will do the josafat as ordered. below, they agreed. Administra tion of diphtheria, pertussis, and tetanus vaccine 511371375 Z23 They declined 06-11-23. [id number] MD Maki Vasquez (Adult Med) [address] [place] [address] 08/29/2023 14:36:19 09/02/2023 15:33:44 Dementia with Down syndrome 979780273 F03.90 Stable. Hyperlipidemia 54728168 E78.5 Mildly elevation of triglyceri de, mildly depression of HDL. mildly elevation of LDL . total cholestero l/HDL is 4.54. advised to be on low animal fat diet, exercise and keep the weight down Morbid obesity 001142665 E66.01 BMI is 41.2 today 08-29-23, advised to watch diet, exercise and keep the weight down. Cervical c ancer Papanicolaou smear screening declined 1442692545 27639 Z53.20 She declined today 08-29-23. Vaccinatio n for acellular pertussis, diphtheria and tetanus not done 1961135908 40605 Z28.9 She declined today 08-29-23. Influenza vaccination declined 584537844 Z28.21 She declined today 08-29-23. 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 624471053 Q90.2 [id number] Cassia Garcia MD [facility] (Adult Med) [address] [place] [address] 10/01/2024 16:23:09 10/02/2024 16:05:28 Lesion of skin of breast 2192131570 91597 L98.8 F/U breast surgeon Health Concerns Section Related Observation LastModified by Organization Detai ls LastModified Time None Recorded Concern Status LastModified by Organization Details LastModified Time None Recorded Advance Directives Directive N: Payers Encounter Date Sequence Insurance Name Policy Number Policy Walton Covered Member ID Walton Member ID Guarantor Name 05/15/2017 1 [facility] (MEDICAID HMO) [id number] Janett Crespo [id number] Mariel Crespo 06/11/2023 2 [place] MED[place]ARE OR MEDICARE REPLACEMENT PRIMARY) Janett Crespo [id number] Mariel Crespo 06/11/2023 1 [place] Janett Crespo [id number] Mariel Crespo 08/29/2023 2 [place] MEDIC[place] REPLACEMENT PRIMARY) Janett Crespo [id number] Mariel Crespo 08/29/2023 1 [place] Janett Crespo [id number] Mariel Crespo 04/13/2024 2 [place] OR MEDIC[place] REPLACEMENT PRIMARY) Janett Crespo [id number] Mariel Crespo 04/13/2024 1 [place] Janettbeth Crespo [id number] Mariel Crespo 10/01/2024 2 [place] OR MEDIC[place] REPLACEMENT PRIMARY) Janett Crespo [id number] Mariel Crespo 10/01/2024 1 [place] Janett Crespo [id number] Mariel Crespo Notes Date Note Type Note Provider Name and Address Organization Details Recorded Time 05/15/2017 text/html WCV, need [place] for [place] [facility]. Mom trying to get her in to a work program since graduated from high school. Wants WW exam, PCP referred her to [facility] SENIOR STORAGE ENGINEER and would not do. Mom frustrated. No recent ER visits, no other concerns. FRANCISCO Benjamin-PC Attn: Accounting,[address] [facility], [place], [address], [place] 05/15/2017 19:23:14 06/11/2023 text/html Office visit, NKDA. came with mother and grand mother. had covid infection in June 2022, complicated with intubation, tracheostomy and chronic respiratory care institution, still has chronic cough, also non-specific abdomen discomfort. Vinnie Lu MD Attn: Accounting,[address] [facility], [place], [address], [place] [facility] 06/11/2023 15:02:52 08/29/2023 text/html Office visit, ca me with her manager primary care, the mother. some one called from this clinic that her liver function was abnormal . mother said. But CMP. CBC, Celiac disease panel do not support such notion. all these copies and explanations provided to mother today. No other complaints. no med refill needed today ROS as noted in HPI. NKDA. patient has Down syndrome. Vinnie Lu MD Attn: Accounting,[address] [facility], [place], [address], [place] [facility] 08/29/2023 15:39:21 04/13/2024 text/html Pt here accompanied by her mother Mrs Denisse Crespo. No acute complaints at present. mother concerned about periodic drops in BP since Sars-CoV-2 infection Cassia Garcia MD Attn: Accounting,[address] [facility], [place], [address], [place] [facility] 04/13/2024 14:46:40 10/01/2024 text/html Pt accompanied b y her mother Denisse Crespo. Was seen by SENIOR STORAGE ENGINEER for a draining lesion on her breast.. US revealed lesion c/w abscess. She has been referred to a breast surgeon. Cassia Garcia MD Attn: Accounting,[address] [facility], [place], [address], [place] [facility] 10/01/2024 17:25:07 OBGyn Episode No OBEpisode recorded.
--- OUTSIDE RECORDS SUMMARY | 2025-01-04 00:41 | XMS_ITS | Data Portability ---
Author Organization [facility] [place] Address [address] [place] [address] [address] Care Team Providers Care Stabilizing Machine Operator Name Role Phone DAWOOD RYAN Primary Care Provider Assessment No assessment recorded. Plan of Treatment Reminders Order Date Submit Date Provider Last Modified By Organization Details Last Modified Time Details Appointments None recorded. Lab None recorded. Referral None recorded. Procedures None recorded. Surgeries None recorded. Imaging US, breast, unilateral 2023 024 [facility] (Mammography) , [address], [place], [address], 4 15:35:19 Medication Orders cephalexin 250 mg/5 mL oral suspension 2024 025 [facility], [address] [place] [address], [address], 18:01:12 cephalexin 250 mg/5 mL oral suspension 2023 025 [facility], [address] [place] [address], [address], 5 11:45:45 Clindamycin Pediatric 75 mg/5 mL oral solution [address] [facility], [address] [place] [address], [address], 4 09:46:59 Patient TargetsNo targets recorded. Patient InstructionsNo instructions recorded. Reason for Referral None Reported. Results Created Date Observation Date Name Description Value Unit Range Abnormal Flag Note LastModifiedBy Organization Detail LastModifiedTime 11/03/1911/03/2024 CULTU RE: AEROB IC/AN AEROB IC result report SEE RESULT S BELOW abnormal Test: Cultu re: Aerob ic/An aerob ic Speci men Sourc e: Breas t, Right Speci men Type: Micro biolo gy Speci men Speci men Date: 2024 1645 Resul t Date: 2024 1235 Resul t Statu s: Final resul t Abnor mal: Yes Resul maikelg Lab: [facility] [address] [facility] [address] Tel: CULTU RE ----- ----- ----- --- Light Growt h Esche sidney a coli (Abno rmal) Light Growt h Madonna l skin juana Cultu re sampl es colle cted from sites that are proxi mal to madonna l anaer obic juana , do not provi de usefu l infor latrell hernandez. The anaer obic porti on of this cultu re has been credi chaparrita. STAIN ----- ----- ----- --- No organ isms seen SUSCE PTIBI LITY ----- ----- ----- --- Esche sidney a coli METHO D DIPIKA ----- ----- ----- ----- ----- ---- ----- ----- ----- ----- ----- - AMPIC ILLIN >16 ug/mL Resis tant AMPIC ILLIN /SULB ACTAM 16 ug/mL Inter media te AZTRE ONAM <=4 ug/mL Susce ptibl e CEFAZ SAPNA <=2 ug/mL Susce ptibl e CEFEP CAMRYN <=2 ug/mL Susce ptibl e CEFTA ZIDIM E <=1 ug/mL Susce ptibl e CEFTR IAXON E <=1 ug/mL Susce ptibl e CIPRO FLOXA DARRELL <=0.2 5 ug/mL Susce ptibl e GENTA MICIN <=2 ug/mL Susce ptibl e LEVOF LOXAC IN <=0.5 ug/mL Susce ptibl e MEROP ENEM <=1 ug/mL Susce ptibl e PIPER ACILL IN/TA ZOBAC MCMULLEN <=8 ug/mL Susce ptibl e TOBRA MYCIN <=2 ug/mL Susce ptibl e TRIME THOPR IM/GROSS LFAME THOXA ZOLE >2 ug/mL Resis tant Not Available [facility] (Lab) [address], [place], [address], 11/06/2024 13:39:01 08/28/20 24 08/28/2024 US, westewa tjassi No observ ation record ed. [address], [address], 09/03/2024 11:48:24 Result Notes None recorded. Procedures Surgical History Date Name Laterality Status Provider Name and Address Organization Details Recorded Time gastrostomy completed [facility] 06/19/2023 14:51:12 lateral tracheostomy completed [facility] 06/19/2023 14:52:05 Imaging Results Imaging Date Name Status LastModified by Organiz ation Details LastModified Time 08/28/2024 US, breast, unilateral completed [address] [place] [address], [address], 09/03/2024 11:48:24 Procedure Notes None recorded. Medical Equipment None Reported. Allergies No known drug allergies Medications Name Sig Start Date Stop Date Status Note LastModified by Organization Details LastModified Time cephalexin 250 mg/5 mL oral suspension Take 10ml BY MOUTH EVERY TWELVE HOURS FOR SEVEN DAYS. DISCARD REMAINDER active Not Available Not Available No t Available mupirocin 2 % topical ointment APPLY EXTERNALL Y TWICE DAILY TO THE right medial breast SKIN CYST active Not Available Not Available No t Available Ventolin HFA 90 mcg/actuati on aerosol inhaler INHALE 2 PUFFS BY MOUTH EVERY 4 HOURS NEEDED active Not Available Not Available No t Available nitrofurant oin monohydrate /macrocryst als 100 mg capsule TAKE ONE CAPSULE BY MOUTH EVERY TWELVE HOURS FOR FIVE DAYS 06/19 completed Not Available Not Available Not Available Clindamycin Pediatric 75 mg/5 mL oral solution take 20 millilite rs BY MOUTH TWICE DAILY with meals FOR 5 DAYS 08/19 completed Not Available Not Available Not Available Vitals Date Recorded Body height Body mass index (BMI) Body weight Systolic blood pressure Diastolic blood pressure Provider Name and Address Organization Details Last Updated DateTime 06/19/2023 149.86 cm 41.2 kg/m2 43095.84 g 92 mm[Hg] 64 mm[Hg] Merced Montano [facility] 3 14:47:36 Date Recorded Body height Body mass index (BMI) Body weight Systolic blood pressure Diastolic blood pressure Provider Name and Address Organization Details Last Updated DateTime 08/19/2024 149.86 cm 39.8 kg/m2 78960.7 g 99 mm[Hg] 64 mm[Hg] Merced Montano [facility] 4 09:46:53 Date Recorded Body height Body mass index (BMI) Body weight Systolic blood pressure Diastolic blood pressure Provider Name and Address Organization Details Last Updated DateTime 11/03/2024 149.86 cm 39.7 kg/m2 51247.98 g 86 mm[Hg] 58 mm[Hg] Alenaaureliano Graceney [facility] 5 15:07:13 Social History Question Answer Notes LastModified by Organizat ion Details LastModified Time Tobacco Smoking Status Never Smoker Merced pennington [facility] 06/19/2023 14:50:44 What Is Your Level Of Alcohol Consumption? None Information not available 06/19/2023 In The 14 Days Before Symptom Onset, Have You Had Close Contact With A Laboratory-confirm ed COVID-19 While That Case Was Ill? No Information n ot available 06/19/2023 In The 14 Days Before Symptom Onset, Have You Had Close Contact With A Person Who Is Under Investigation For COVID-19 While That Person Was Ill? No Information not available 06/19/2023 Have You Been To An Area Known To Be High Risk For COVID-19? No Information not available 06/19/2023 Do You Use Any Illicit Or Recreational Drugs? No Information not available 06/19/2023 Sex: Unknown Functional Status None recorded. Mental Status None recorded. Family History Relationship Description Onset Age of this Age Resolved Age Notes LastModified by Organization Details LastModified Time Maternal Aunt Malignant tumor of breast Not available 2022 14:48:47 Maternal Aunt Malignant tumor of colon Not available 2022 14:49:02 Maternal Aunt Diabetes mellitus Not available 2022 14:49:29 Maternal Aunt Hypertensive disorder Not available 2022 14:50:00 Maternal Grandmother Malignant tumor of colon Not available 2022 14:49:02 Maternal Grandmother Diabetes mellitus Not available 2022 14:49:29 Maternal Grandmother Hypertensive disorder Not available 2022 14:50:00 Mother Diabetes mellitus Not available 2022 14:49:29 Mother Hypertensive disorder Not available 2022 14:50:00 Maternal Grandfather Diabetes mellitus Not available 2022 14:49:29 Maternal Grandfather Hypertensive disorder Not available 2022 14:50:00 Maternal Uncle Diabetes mellitus Not available 2022 14:49:29 Father Hypertensive disorder Not available 2022 14:50:00 Father Malignant tumor of lung a few months ago Not available 06/19/2023 14:50:31 Medical History Condition Response Allergies (Food, seasonal, environmental ) N Other N Blood Transfusion N Breast Cancer N Drug/Latex Allergies/Reactions N Lung Disease N Dermatologic Disorders N Defects or Inherited Disease Y Breast Problem N Gestational Diabetes N Hematologic disorders N Anesthesia Complications N History of STI N Deep Vein Thrombosis N Polycystic ovary syndrome N Anxiety Disorder N Autoimmune disease N Arthritis N Polyps N Infertility N Acid Reflux (GERD) N History of abnormal pap N Cancer N Varicosities N Stroke N Neurologic/Epilepsy N Endometriosis N High Cholesterol N Fibromyalgia N Headaches N Kidney Disease N Heart Problems N Thyroid Problems N Kidney or Bladder Problems N GI Problems N Eating Disorder N Anemia N Art (IVF or FET) N Psychiatric Illness N Ovarian Cancer N Diabetes N Pulmonary (TB, Asthma) N Hepatitis/Liver Disease N No Past Medical History N Eczema N Urinary Tract Infection N Abuse/Domestic Violence N Asthma N Trauma/Violence N Depression/ depression N Heart Disease N Pre-Eclampsia N Hypertension N Osteoporosis N Thrombophilias N Gynecological History Statement/Question Response Abnormal Pap N Flow Heavy Date of LMP 10/29/2024 Was last menstrual period normal Y STIs/STDs N Duration of Flow (days) 5 Current Control Method Abstinence Are cycles usually normal Y Frequency of Cycle (Q days) 32 Sexually Active? No Menses Monthly Y Age of first menstrual cycle 13 Date of Last Pap Smear Sexual Problems? N LMP Approximate Obstetrics History GPAL:G 0 P 0 0 0 0 Past Encounters Encounter ID Performer Location Encounter Start Date Encounter Closed Date Diagnosis/Indication Diagnosis SNOMED-CT Code Diagnosis ICD10 Code Diagnosis Note [id number] [facility] [address] [address] 06/19/2023 13:53:02 06/19/2023 16:40:58 Vaginitis 68106623 N76.0 Discharge on exam which was limited; suspect BV with odor/disch arge.We discussed changes using VCG's and treatment for this issue.She is unable to take tablets medication s and requests oral suspension . Counseled on medication R/B's, Most common side effects, & use. All questions were answered to patient satisfacti on.Flagyl not available in oral suspension .Time spent in visit is a total of 30 mins with at least 50% of visit consisting of counseling and review of plan of care. [id number] DEYA Guerra [facility] [address] [address] 08/19/2024 09:38:48 08/19/2024 12:09:27 Abscess of skin of breast 8771887189 7984123 N61.1 rx cephalexin (unable to take tablets, request oral suspension )order for breast u/s givenpreca utions discussed Patient is to contact office or go to nearest ED/Urgent care if fever >/= 100.1, pain, excessive bleeding, unusual drainage or swelling in area of concern; or experienci ng worsening sx's or new onset of concerning sx's. Understand ing verbalized . All questions answered to patient satisfacti on. Time spent in visit is a total of 15 mins with at least 50% of visit consisting of counseling and review of plan of care. [id number] DEYA Guerra [facility] [address] [address] 11/03/2024 14:51:14 11/03/2024 15:35:24 Abscess of skin of breast 4628484430 2003939 N61.1 cx collected and sentrx cephalexin (unable to take tablets, request oral suspension )recommend ed breast specialist consult (she has an appointmen t on 11/[address] [facility] [address] Richards).P recautions reviewed, questions answered Patient is to contact office or go to nearest ED/Urgent care if fever >/= 100.1, pain, excessive bleeding, unusual drainage or swelling in area of concern; or experienci ng worsening sx's or new onset of concerning sx's. Understand ing verbalized . All questions answered to patient satisfacti on. Time spent in visit is a total of 20 mins with at least 50% of visit consisting of counseling and review of plan of care. Health Concerns Section Related Observation LastModified by Organization Detai ls LastModified Time None Recorded Concern Status LastModified by Organization Details LastModified Time None Recorded Advance Directives Directive None Recorded Payers Encounter Date Sequence Insurance Name Policy Number Policy Walton Covered Member ID Walton Member ID Guarantor Name 06/19/2023 2 [place] Janett Kirit Zak [id number] Janett Kirit Zak 06/19/2023 1 [place] Janett Beth Zak [id number] Janett Kirit Zak 08/19/2024 2 [place] Janett Kirit Zak [id number] Janettbeth Crespo 08/19/2024 1 [place] Janett Crespo [id number] Janett Crespo 11/03/2024 2 [place] Janett Crespo [id number] Janett Crespo 11/03/2024 1 [facility] (MEDICARE REPLACEMENT/A DVANTAGE - HMO) [id number] Janett Crespo [id number] Janett Crespo Notes Date Note Type Note Provider Name and Address Organization Details Recorded Time 06/19/2023 text/html Vaginal/Vulvar ProblemReported bypatient.Notes:Cait lopez is a 27yo AA female with downs-syndrome here today with her mother who is her caregiver; for complaints of vaginal odor, discharge and some irritation for the last two weeks. Resides with her mother now.Lost job during .Graduated H.S from [employer], [place], operated by [employer] in any way.Neg physical/sexual abuseHaving some GI issues she is seeing her primary care doctor for now.Neg pain of abd/pelvis/flankNeg urinary sx'sNeg GI sx'sNeg N/V/F/C/DNeg itching Health Hx was reviewed and updated as reported in chart. DEYA Tejeda- [address], [place], [address], [facility] 06/19/2023 16:37:47 08/19/2024 text/html 28yopresents for evaluation of breast lesionsymptoms started 1 month agocomes and goes over the past month, recently drained clear fluidnon tender neg n/v/fneg flu-like symptoms DEYA Guerra [address], [place], [address], [facility] 08/19/2024 11:25:42 11/03/2024 text/html 29yo [id number] for f/u on breast abscessseen 08/19 for breast abscess - treated with cephalexin and breast u/s done (consistent with abscess, radiologist recommended 3 month f/u breast u/s after treatment). Referral placed for breast specialist (Dr. Susie Carlin - at that time if symptoms did not resolve with antibiotics).noticed improvement with antibiotics, much smaller/non tender after completing.A few weeks ago started increasing in size again. Has been picking/itching at this area as well. neg n/v/fneg flu-like symptoms DEYA Guerra [address], [place], [address], [place] [facility] 11/03/2024 15:28:28 OBGyn Episode No OBEpisode recorded.
--- NOTE | 2025-01-04 06:59 | WPDHPUPDATE1 ---
History and Physical Update Update Date/Time: 01/04/25 06:59 - Excisional biopsy of right breast lesion History and Physical has been reviewed, including an updated exam of the patient. There are NO changes in the patient's condition. Risks, benefits, and alternatives have been discussed and questions answered. Patient agrees to proceed with procedure.
[2025-01-04] MEDS: ACETAMINOPHEN ELIXIR 325 MG/10.15 ML UDC 1000 MG PO (07:05)
--- NOTE | 2025-01-04 07:14 | WPDANESEPPF ---
Anes - Initial Pre Proc Eval Procedure: Operation Date: 01/04/25 07:30 Proposed Procedures p Excisional Biopsy Right Breast Lesion - Shilpa Richards MD Date/Time: 01/04/25 07:14 Surgeon: Shilpa Richards MD Pre Op Diagnosis: right breast lesion Patient Data Age: 29 Gender: F Height: 1.5 m Weight: 88.8 kg Last Vital Signs Temp 36.3 C L 01/04/25 07:02 Pulse 86 01/04/25 07:02 BP 123/84 01/04/25 07:02 Pulse Ox 100 01/04/25 07:02 O2 Del Method Room Air 01/04/25 07:02 Allergies Allergy/AdvReac Type Severity Reaction Status Date / Time No Known Allergies Allergy Verified 01/04/25 07:01 Home Medications ?Medication ?Instructions ?Recorded ?Confirmed ?Type mupirocin 2 % topical ointment 1 applic topical BID #22 grams 11/16/24 01/04/25 Rx ([facility]) amoxicillin 875 mg-potassium 1 tablet PO Q12H #30 tabs 12/24/24 01/04/25 Rx clavulanate 125 mg tablet multivitamin (Daily Multi-Vitamin 1 tablet PO DAILY 12/25/24 01/04/25 History tablet) acetaminophen 120 mg-codeine 12 15 ml PO Q6H PRN pain #120 mL 01/04/25 Rx mg/5 mL (5 mL) oral solution Patient hx anesthesia problems: none Family hx anesthesia problems: none Results Review: All pre-operative results and documents have been reviewed as part of the pre-operative evaluation. [facility] Family History Family History Other Breast cancer Other Breast cancer Social History Social History Smoking status: Never smoker Alcohol intake: never Substance use: never Substance use type: does not use Current Housing: Decline to Answer Concerned About Future Housing: Decline to Answer Difficulty Paying Gas/Electric Bills: Decline to Answer Difficulty Paying for Meds: Decline to Answer Currently Unemployed: Decline to Answer Education: Decline to Answer Difficulty w/ Childcare or Family Care: Decline to Answer Living arrangements: with family Spiritual care concerns: No Anes - Eval Final PreProcedure Day of Procedure 01/04/25 07:14 Patient weight: morbidly obese Heart: regular rate and rhythm Lungs: clear to auscultation Airway: Mallampati scale class III Neurological: alert and oriented Last oral intake: >/= 8 hours ASA classification: III Emergent: no Anesthetic plan: proceed Anesthesia type and monitoring: general LMA and standard monitoring Results Review: All pre-operative results and documents have been reviewed as part of the pre-operative evaluation. Informed Consent: The patient's anesthetic plan and its attendant risks and benefits were discussed with the patient/family/POA. Questions were solicited and answers provided to the satisfaction of the patient/family/POA.
[2025-01-04] MEDS: LIDOCAINE 1% LOCAL INJ 10 ML VIAL INFILTRATE (07:43)
[2025-01-04] MEDS: ceFAZolin 2 GM/D5W 50 ML 2 GM/50 ML BAG IVPB (07:43)
[2025-01-04] MEDS: BUPIVACAINE/EPINEPHRINE 0.5% 50 ML VIAL 10 ML INFILTRATE (07:44)
--- NOTE | 2025-01-04 08:06 | P.OP_ITS ---
Procedure Note - Detailed Date of Procedure 01/04/25 Pre-op Diagnosis right breast skin lesion Post-op Diagnosis Same Procedure Performed Excisional biopsy of right breast skin lesion Surgeon Shilpa Richards MD Anesthesia MAC Description of Procedure Patient was identified in the preoperative holding area brought to the operating room suite. She was laid supine on the operating table sequential compression devices were applied. Anesthesia was induced without difficulty. The right chest area was prepped and draped in a sterile fashion. An elliptical incision was made around the area of skin induration and dissection was carried down through the subcutaneous tissue into the breast tissue. This was excised EN bloc and sent to pathology as a permanent specimen. The cavity was irrigated with saline hemostasis was assured. The deep dermal layer was approximated with interrupted 3-0 Vicryl followed by 4-0 Monocryl in a subcuticular fashion for the skin. Dermabond was applied followed by Steri-Strips and a sterile dressing. Patient was awoken from anesthesia taken to the recovery room in sta ble condition. All needles, instruments, and sponge counts were correct reported by the operating room staff. Patient tolerated the procedure well with no immediate complications. Estimated Blood Loss 2 Pathology Yes Complications No immediate complications Condition Stable Disposition PACU [facility] Billing Surgery - Charge Forward: Surgery Billing (CPT 95366)
[2025-01-04] MEDS: LACTATED RINGERS 1,000 ML 30 ML IV CONT (08:10)
== END 2025-01-04 09:52 | disposition home or self-care (01) ==
PROVIDERS: PCP Internal Medicine; Visit Provider Surgery
PROC: (CPT 11403; principal; 2025-01-04 07:30)
DX: L72.0 Epidermal cyst (principal); E66.01 Morbid (severe) obesity due to excess calories; Z68.39 Body mass index [BMI] 39.0-39.9, adult
CPT/HCPCS: 11403; 12031; 88305; A9270; J0690; J2003; J2250; J2704; J7120; Q9968